=== PATIENT | female | born 1965 | race Caucasian/White ===

== ENCOUNTER 2017-04-17 19:16 | Emergency (ER) | payer BC ==
[2017-04-17 19:46] VITALS: BP 160/86; PULSE 82; TEMP 98.8; BMI 26.9
[2017-04-17 20:54] LABS: BASO % 0.9 % (0-2.0); EOS % 2.4 % (0-4.5); HEMATOCRIT 37.1 % (32.4-45.2); LYMPH % 34.6 % (8-40); MCH 27.5 pg (25.7-33.7); MCHC 32.2 g/dl (32.0-36.0); MEAN CELL VOLUME 85.1 fl (80-96); MEAN PLT VOLUME 7.6 fl (7.5-11.1); NEUT % 54.1 % (42.8-82.8); PLATELET COUNT 317 K/MM3 (134-434); RBC 4.36 M/mm3 (3.60-5.2); RDW 13.6 % (11.6-15.6); WHITE BLOOD COUNT 6.1 K/mm3 (4.0-10.0)
--- NOTE | 2017-04-17 21:01 | PDOC ---
History of Present Illness - General Chief Complaint: Shortness of Breath Stated Complaint: RESPIRATORY Time Seen by Provider: 04/17/17 19:48 - History of Present Illness Initial Comments: 04/17/17 20:45 51 yo F with no significant pmh who presents with SOB/. Pt. reports acute onset of SOB, sharp, pleuritic chest and back pain worse with deep inhalation, and non productive cough. + lightheadness. Denies N/V, F/C, jaw or neck pain, hemoptysis, wheezing, abdominal pain, diarrhea, constipation, urinary complaints , weakness, LOC, or sensory disturbance. No OTC symptom control. Denies tobacco use. Denies h/o CAD/CO. Denie chest trauma. Past History - Past Medical History Allergies/Adverse Reactions: Allergies Allergy/AdvReac Type Severity Reaction Status Date / Time No Known Allergies Allergy Verified 04/17/17 19:46 Home Medications: Ambulatory Orders Metformin HCl [Glucophage] 1,000 mg PO DAILY 04/17/17 COPD: No Diabetes: Yes - Suicide/Smoking/Psychosocial Hx Smoking History: Never smoked Have you smoked in the past 12 months: No Information on smoking cessation initiated: No Hx Alcohol Use: No Drug/Substance Use Hx: No Substance Use Type: None Review of Systems - Review of Systems Comments:: 04/17/17 20:46 GENERAL/CONSTITUTIONAL: No fever or chills. No weakness. HEAD, EYES, EARS, NOSE AND THROAT: No change in vision. No ear pain or discharge. No sore throat.- CARDIOVASCULAR: + chest pain and shortness of breath RESPIRATORY: + cough. No wheezing, or hemoptysis. GASTROINTESTINAL: No nausea, vomiting, diarrhea or constipation. GENITOURINARY: No dysuria, frequency, or change in urination. MUSCULOSKELETAL: No joint or muscle swelling or pain. No neck or back pain. SKIN: No rash NEUROLOGIC: No headache, vertigo, loss of consciousness, or change in strength/ sensation. ENDOCRINE: No increased thirst. No abnormal weight change HEMATOLOGIC/LYMPHATIC: No anemia, easy bleeding, or history of blood clots. ALLERGIC/IMMUNOLOGIC: No hives or skin allergy. *Physical Exam - Vital Signs Last Vital Signs Temp Pulse Resp BP Pulse Ox 98.8 F 82 18 160/86 100 04/17/17 19:42 04/17/17 19:42 04/17/17 19:42 04/17/17 19:42 04/17/17 19:42 - Physical Exam Comments: 04/17/17 20:46 GENERAL: Awake, alert, and fully oriented, in no acute distress HEAD: No signs of trauma, normocephalic, atraumatic EYES: PERRLA, EOMI, sclera anicteric, conjunctiva clear ENT: Hearing grossly normal, nares patent, oropharynx clear without exudates. Moist mucosa NECK: Normal ROM, supple, no lymphadenopathy, JVD, or masses LUNGS: No distress, speaks full sentences, clear to auscultation bilaterally HEART: Regular rate and rhythm, normal S1 and S2, no murmurs, rubs or gallops, peripheral pulses normal and equal bilaterally. EXTREMITIES : Normal inspection, Normal range of motion, no edema. No clubbing or cyanosis. SKIN: Warm, Dry, normal turgor, no rashes or lesions noted. ED Treatment Course - LABORATORY CBC & Chemistry Diagram: 04/17/17 20:11 04/17/17 20:11 Medical Decision Making - Medical Decision Making 04/17/17 21:05 51 yo F with h/o NIDDM and HTN who presents acute onset of SOB, sharp, peluritic chest and back pain worse with deep inhalation, and non productive cough. + lightheadness. Denies N/V, F/C, jaw or neck pain, hemoptysis, wheezing , abdominal pain, diarrhea, constipation, urinary complaints, weakness, LOC, or sensory disturbance. Denies tobacco use. Denies h/o CAD/CO. Physical exam unremarkable. BP 160/86. Will evaluate for possible causes of SOB including PNA vs. Influenza. R/o ACS/CO with atypical chest pain and risk factors. DDx: Viral URI, Influenza, PNA ED Course: CBC, CMP, Cardiac profile EKG, CXR Infuenza 04/17/17 21:32 Ibuprofen 600 mg. CXR: Unremarkable EK04/17/17 22:11 Trop: Neg CMP: Unremarkable Influenza Neg Patient stable and will discharge with return precautions. Advised to f/u with PMD. *DC/Admit/Observation/Transfer Diagnosis at time of Disposition: Shortness of breath Chest pain Qualifiers: Chest pain type: chest pain on breathing Qualified Code(s): R07.1 - Chest pain on breathing - Discharge Dispostion Disposition: HOME Condition at time of disposition: Stable Admit: No - Referrals - Patient Instructions Printed Discharge Instructions: DI for Atypical Chest Pain Additional Instructions: Please return to the emergency department with any new or worsening symptoms or concerns. Please follow up with your primary care physician within one week. - Post Discharge Activity - Attestations Physician Attestion: 04/17/17 22:11 I attest to the documentation provided in this note.
[2017-04-17 21:21] LABS: ALBUMIN 3.5 g/dl (3.4-5.0); ANION GAP 6 (8-16); BLOOD UREA NITROGEN 19 mg/dL (7-18); CALCIUM 8.1 mg/dL (8.5-10.1); CHLORIDE 105 mmol/L (98-107); CO2 25 mmol/L (21-32); CREATININE 0.7 mg/dL (0.55-1.02); GLUCOSE,RANDOM 259 mg/dL (74-106); INR 0.98 (0.82-1.09); POTASSIUM 4.2 mmol/L (3.5-5.1); PROTHROMBIN TIME (PATIENT) 11.1 SEC (9.98-11.88); SGOT/AST 8 U/L (15-37); SGPT/ALT 15 U/L (12-78); SODIUM 136 mmol/L (136-145)
[2017-04-17 21:25] LABS: ALK PHOS 176 U/L (45-117); BILIRUBIN,TOTAL 0.2 mg/dL (0.2-1.0); TOT PROT 6.9 g/dl (6.4-8.2)
--- NOTE | 2017-04-17 21:48 | PDOC ---
Attending Attestation - HPI HPI: 04/17/17 22:53 The patient is a 51 year old female with past medical history of diabetes and hypertension who presents to the ED with complaints of 1 week of shortness of breath. She additionally complains of a sharp, pleuritic pain that is worse with deep inspiration and her dry, non-productive cough. She endorses intermittent lightheadedness as well. She denies any fever or chills. Denies any hemoptysis, nausea, vomiting, or diarrhea. She denies any urinary symptoms. Documentation prepared by Deisy Frankel, acting as biomedical scientist for Tiki Soriano DO. - Physicial Exam PE: 04/17/17 22:54 GENERAL: Awake, alert, and fully oriented, in no acute distress HEAD: No signs of trauma EYES: PERRLA, EOMI, sclera anicteric, conjunctiva clear ENT: Auricles normal inspection, hearing grossly normal, nares patent, oropharynx clear without exudates. Moist mucosa NECK: Normal ROM, supple, no lymphadenopathy, JVD, or masses LUNGS: Deminished breath sounds at bilateral bases. No wheezes, and no crackles HEART: Regular rate and rhythm, normal S1 and S2, no murmurs, rubs or gallops ABDOMEN: Soft, nontender, normoactive bowel sounds. No guarding, no rebound. No masses EXTREMITIES: Normal range of motion, no edema. No clubbing or cyanosis. No cords, erythema, or tenderness NEUROLOGICAL: Cranial nerves II through XII grossly intact. Normal speech, normal gait SKIN: Warm, Dry, normal turgor, no rashes or lesions noted. <Deisy Frankel - Last Filed: 04/17/17 22:53> - Resident Resident Name: Talha Cannon - ED Attending Attestation I have performed the following: I have examined & evaluated the patient, The case was reviewed & discussed with the resident, I agree w/resident's findings & plan, Exceptions are as noted - Medical Decision Making 04/17/17 21:48 I, Dr. Tiki Soriano DO, attest that this document has been prepared under my direction and personally reviewed by me in its entirety. I further attest, that it accurately reflects all work, treatment, procedures and medical decision -making performed by me. 04/17/17 22:42 a/p: 51yo female with SOB - no cp -will check labs, ekg, flu, has had dry nonproductive cough -suspect viral uri with pleurisy -will give motrin and nebs -will monitor and reassess -suspect RAD from viral URI 04/18/17 00:54 pt feeling much better after the neb pending repeat trop 04/18/17 01:43 repeat trop negative stable for d/c to home <Tiki Soriano - Last Filed: 04/18/17 01:43> Discharge Disposition <MarlysDeisy - Last Filed: 04/17/17 22:53> - Discharge Dispostion Admit: No <Tiki Soriano - Last Filed: 04/18/17 01:43> - Diagnosis Shortness of breath Chest pain Qualifiers: Chest pain type: chest pain on breathing Qualified Code(s): R07.1 - Chest pain on breathing - Discharge Dispostion Disposition: HOME Condition at time of disposition: Stable - Prescriptions Prescriptions: Albuterol 0.083% Nebulizer Annemarie [Ventolin 0.083% Nebulizer Soln -] 1 neb NEB Q4H PRN #1 vial PRN Reason: Shortness Of Breath - Referrals Referrals: Gilbert Zavala MD [Staff Physician] - - Patient Instructions Printed Discharge Instructions: DI for Atypical Chest Pain Additional Instructions: Please return to the emergency department with any new or worsening symptoms or concerns. Please follow up with your primary care physician within one week. - Post Discharge Activity Heart Score/ECG Review - ECG Intrepretation Comment:: 04/17/17 22:44 sinus at 69, nl axis, nl interval, q waves anteriorly that are age indeterminate , no acute st/t wave findings <Tiki Soriano - Last Filed: 04/18/17 01:43>
[2017-04-17] MEDS ORDERED: ALBUTEROL SO4 2.5/IPRATROPIUM 0.5 INH SOL 3 ML VIAL.NEB. NEB ONE ×2 (22:32→22:37)
[2017-04-17] MEDS ORDERED: IBUPROFEN 600 MG TABLET (FP) PO ONE ×2 (22:32→22:36)
--- NOTE | 2017-04-18 10:04 | EKG ---
Test Reason : Blood Pressure : / mmHG Vent. Rate : 069 BPM Atrial Rate : 069 BPM P-R Int : 164 ms QRS Dur : 086 ms QT Int : 402 ms P-R-T Axes : 057 023 041 degrees QTc Int : 430 ms NORMAL SINUS RHYTHM LOW VOLTAGE QRS SEPTAL INFARCT , AGE UNDETERMINED ABNORMAL ECG NO PREVIOUS ECGS AVAILABLE Confirmed by TAL NGUYEN MD ([id number]) on 04/18/2017 10:04:42 AM Referred By: Confirmed By:TAL NGUYEN MD
== END 2017-04-18 01:24 | disposition home or self-care (01) ==
LOC: JER 19:16
PROC: 3E0F7GC Introduction of Other Therapeutic Substance into Respiratory Tract, Via Natural or Artificial Opening (ICD-10-PCS; principal; 2017-04-17)
DX: R07.1 Chest pain on breathing (principal)
CPT/HCPCS: 36415; 71046-TC; 80053; 82550; 84484; 85025; 85610; 87804; 93005; 93010; 99283-25

== ENCOUNTER 2017-06-16 07:49 | Day surgery (SDC) | payer BC ==
[2017-06-16 08:27] VITALS: BMI 24.5
[2017-06-16] MEDS ORDERED: PROPOFOL 20 ML ONE ×3 (08:41)
[2017-06-16 09:31] VITALS: TEMP 97.5
--- NOTE | 2017-06-16 09:31 | PROC ---
Endoscopy Procedure Endoscopy procedure completed. Please see scanned procedure report.
[2017-06-16 09:52] VITALS: PULSE 73
[2017-06-16 13:24] VITALS: BP 119/71
--- NOTE | 2017-06-17 11:54 | PATH ---
Surgical Pathology Report Patient Name: YESSICA LAY [facility]. Rec. #: [id number] /Age/Gender: 1965 (Age: 52) / F Account: [id number] Location: [facility]-ENDOSCOPY Taken: 06/16/2017 Received: 06/16/2017 Reported: 06/17/2017 Physicians: Efe Alanis M.D. Specimen(s) Received A: BX DUODENUM B: BX ANTRUM/BODY C: BX ASCENDING COLON D: BX DESCENDING COLON Clinical History Preoperative diagnosis: Abdominal pain, screening Postoperative diagnosis: Mild gastritis, abdominal pain Final Diagnosis A. DUODENUM, SECOND PORTION, BIOPSY: DUODENAL MUCOSA WITH NO PATHOLOGIC CHANGES. NO HISTOLOGIC EVIDENCE OF GLUTEN SENSITIVE ENTEROPATHY (CELIAC SPRUE) IDENTIFIED. B. STOMACH, ANTRUM AND BODY, BIOPSY: GASTRIC ANTRAL AND FUNDIC MUCOSA WITH FOCAL MILD REACTIVE GASTROPATHY. IMMUNOSTAIN FOR H. PYLORI IS NEGATIVE. C. COLON, ASCENDING, BIOPSY: COLONIC MUCOSA WITH PROMINENT SUBMUCOSAL LYMPHOID AGGREGATE. NO ACTIVE COLITIS, ARCHITECTURAL DISTORTION, GRANULOMATA, OR DYSPLASIA IDENTIFIED. NO MICROSCOPIC COLITIS IDENTIFIED (NO LYMPHOCYTIC OR COLLAGENOUS COLITIS IDENTIFIED). D. COLON, DESCENDING, BIOPSY: COLONIC MUCOSA WITH NO PATHOLOGIC CHANGES. NO ACTIVE COLITIS, ARCHITECTURAL DISTORTION, GRANULOMATA, OR DYSPLASIA IDENTIFIED. NO MICROSCOPIC COLITIS IDENTIFIED (NO LYMPHOCYTIC OR COLLAGENOUS COLITIS IDENTIFIED). Comment: The findings in Specimen C may indicate some form of antigenic stimulation to the GI tract. Electronically Signed Parker Romero M.D. Gross Description A. Received in formalin, labeled "biopsy second portion of duodenum" are 3 solis, irregular portions of soft tissue ranging from 0.2-0.4 cm. in greatest dimension. The specimens are submitted in toto in one cassette. B. Received in formalin, labeled "biopsy antrum/body" are 3 solis, irregular portions of soft tissue ranging from 0.2-0.4 cm. in greatest dimension. The specimens are submitted in toto in one cassette. C. Received in formalin, labeled "biopsy ascending colon" are 2 solis, irregular portions of soft tissue measuring 0.2 and 0.3 cm. in greatest dimension. The specimens are submitted in toto in one cassette. D. Received in formalin, labeled "biopsy descending colon" are 2 solis, irregular portions of soft tissue measuring 0.2 and 0.5 cm. in greatest dimension. The specimens are submitted in toto in one cassette. 06/16/201706/16/2017
== END 2017-06-16 10:20 | disposition home or self-care (01) ==
LOC: JASU-ENDO 07:49
PROVIDERS: ATTEND Internal Medicine Gastroenterology
PROC: 0DBM8ZX Excision of Descending Colon, Via Natural or Artificial Opening Endoscopic, Diagnostic (ICD-10-PCS; 2017-06-16)
PROC: 0DB98ZX Excision of Duodenum, Via Natural or Artificial Opening Endoscopic, Diagnostic (ICD-10-PCS; 2017-06-16)
PROC: 0DB68ZX Excision of Stomach, Via Natural or Artificial Opening Endoscopic, Diagnostic (ICD-10-PCS; 2017-06-16)
PROC: 0DBK8ZX Excision of Ascending Colon, Via Natural or Artificial Opening Endoscopic, Diagnostic (ICD-10-PCS; principal; 2017-06-16 08:30)
DX: Z12.11 Encounter for screening for malignant neoplasm of colon (principal); K29.70 Gastritis, unspecified, without bleeding
CPT/HCPCS: 84703; 88305-TC; 88342-TC

== ENCOUNTER 2020-04-03 08:11 | Inpatient (IN) | payer OTHER ==
[2020-04-03] MEDS ORDERED: DEXAMETHASONE SOD PHOSPHATE 4 MG/1 ML VIAL IVPUSH ONE ×2 (08:48→10:20)
[2020-04-03 08:50] VITALS: BMI 21.6
[2020-04-03 09:50] LABS: BASO % 0.1 % (0-2.0); HEMATOCRIT 35.9 % (32.4-45.2); HEMOGLOBIN 11.6 GM/dL (10.7-15.3); LYMPH % 8.5 % (8-40); MCH 27.9 pg (25.7-33.7); MCHC 32.2 g/dl (32.0-36.0); MEAN CELL VOLUME 86.6 fl (80-96); MEAN PLT VOLUME 7.8 fl (7.5-11.1); MONO % 3.5 % (3.8-10.2); NEUT % 87.9 % (42.8-82.8); PLATELET COUNT 333 K/MM3 (134-434); RBC 4.15 M/mm3 (3.60-5.2); RDW 14.5 % (11.6-15.6); WHITE BLOOD COUNT 8.3 K/mm3 (4.0-10.0)
[2020-04-03 09:52] LABS: CHLORIDE 104 mmol/L (98-107); POTASSIUM 3.9 mmol/L (3.5-5.1); SODIUM 138 mmol/L (136-145)
[2020-04-03 09:54] LABS: CALCIUM 8.2 mg/dL (8.5-10.1)
[2020-04-03 09:55] LABS: ANION GAP 4 MMOL/L (8-16); BLOOD UREA NITROGEN 6.4 mg/dL (7-18); CO2 30 mmol/L (21-32); GLUCOSE,RANDOM 312 mg/dL (74-106)
[2020-04-03 09:58] LABS: CREATININE 0.7 mg/dL (0.55-1.3); SGOT/AST 27 U/L (15-37); SGPT/ALT 33 U/L (13-61)
[2020-04-03 09:59] LABS: BILIRUBIN,TOTAL 0.2 mg/dL (0.2-1); TOT PROT 6.7 g/dl (6.4-8.2)
[2020-04-03 10:01] LABS: ALK PHOS 117 U/L (45-117)
[2020-04-03 10:02] LABS: LDH 353 U/L (84-246)
[2020-04-03] MEDS ORDERED: DEXAMETHASONE SOD PHOSPHATE 4 MG/1 ML VIAL ONE (10:29)
[2020-04-03 10:30] LABS: PROTHROMBIN TIME (PATIENT) 12.3 SEC (9.7-13.0)
[2020-04-03 10:33] LABS: ACTIVATED PTT 27.9 SECONDS (25.2-36.5)
[2020-04-03 11:20] LABS: EPI CELLS 30 /uL (0-25.1); HYALINE CASTS 0 /uL (0-3.1); URINE APPEARANCE Clear; URINE BACTERIA 375 /uL (0-1359); URINE BILIRUBIN Negative (NEGATIVE); URINE COLOR Yellow; URINE GLUCOSE (UA) >=1000 (NEGATIVE); URINE KETONE 80 (NEGATIVE); URINE LEUK ESTERASE Negative (NEGATIVE); URINE NITRITE Negative (NEGATIVE); URINE PROTEIN 30 (NEGATIVE); URINE RBC 4 /uL (0-23.9); URINE UROBILINOGEN 0.2 mg/dL (0.2-1.0); URINE WBC 5 /uL (0-25.8)
[2020-04-03] MEDS ORDERED: AZITHROMYCIN IVPB 500 MG in DEXTROSE 5%-WATER - 250 ML IVPB ONE (11:44)
[2020-04-03] MEDS: CEFTRIAXONE 1 GM in DEXTROSE 5%-WATER - 50 ML IVPB SCH (13:17)
[2020-04-03] MEDS: INSULIN SLIDING SCALE (NOVOLOG) 1 VIAL SQ SCH ×2 (17:02→23:15)
[2020-04-03] MEDS: ACETAMINOPHEN 325 MG TABLET (FP) PO PRN (18:19)
[2020-04-04] MEDS: INSULIN SLIDING SCALE (NOVOLOG) 1 VIAL SQ SCH ×4 (07:06→22:01)
[2020-04-04 09:10] LABS: HEMATOCRIT 35.9 % (32.4-45.2); HEMOGLOBIN 11.8 GM/dL (10.7-15.3); MCHC 32.8 g/dl (32.0-36.0); MEAN CELL VOLUME 85.5 fl (80-96); MEAN PLT VOLUME 7.7 fl (7.5-11.1); PLATELET COUNT 423 K/MM3 (134-434); RDW 14.4 % (11.6-15.6); WHITE BLOOD COUNT 7.5 K/mm3 (4.0-10.0)
[2020-04-04 09:34] LABS: CALCIUM 8.5 mg/dL (8.5-10.1)
[2020-04-04 09:35] LABS: BLOOD UREA NITROGEN 11.8 mg/dL (7-18)
[2020-04-04 09:36] LABS: MAGNESIUM 1.8 mg/dL (1.8-2.4)
[2020-04-04 09:38] LABS: CREATININE 0.6 mg/dL (0.55-1.3); PHOSPHOROUS 3.2 mg/dL (2.5-4.9)
[2020-04-04 09:39] LABS: BILIRUBIN,TOTAL 0.6 mg/dL (0.2-1); TOT PROT 6.8 g/dl (6.4-8.2)
[2020-04-04] MEDS ORDERED: PNEUMOC 13-VAL CONJ-DIP CRM/PF 0.5 ML DISP.SYRIN IM ONE (10:00)
[2020-04-04] MEDS ORDERED: AZITHROMYCIN IVPB 250 MG in DEXTROSE 5%-WATER - 250 ML IVPB SCH (10:00)
[2020-04-04] MEDS: ENOXAPARIN NA (PORCINE) 40 MG/0.4 ML DISP.SYRIN SQ SCH (10:39)
[2020-04-04] MEDS: PANTOPRAZOLE 40 MG TABLET PO SCH (10:39)
[2020-04-04] MEDS: DEXAMETHASONE SOD PHOSPHATE 4 MG/1 ML VIAL IVPUSH SCH (10:39)
[2020-04-04] MEDS: CEFTRIAXONE 1 GM in DEXTROSE 5%-WATER - 50 ML IVPB SCH (10:39)
[2020-04-04] MEDS ORDERED: ALBUTEROL SO4 0.083% IH SOL 2.5 MG/3 ML VIAL.NEB. NEB PRN (14:21)
[2020-04-04] MEDS: INSULIN (LEVEMIR) 100 UNITS/ML UNITS SQ SCH (18:06)
[2020-04-04] MEDS: ZINC SULFATE 220 MG CAPSULE (FP) PO SCH (21:50)
[2020-04-04] MEDS: ASCORBIC ACID 500 MG TABLET (FP) PO SCH (21:51)
[2020-04-05] MEDS: INSULIN (LEVEMIR) 100 UNITS/ML UNITS SQ SCH ×2 (06:22→22:12)
[2020-04-05] MEDS: INSULIN SLIDING SCALE (NOVOLOG) 1 VIAL SQ SCH ×4 (06:23→22:11)
[2020-04-05 07:55] LABS: BASO % 0.1 % (0-2.0); EOS % 0.1 % (0-4.5); HEMATOCRIT 36.9 % (32.4-45.2); LYMPH % 13.8 % (8-40); MCH 27.8 pg (25.7-33.7); MCHC 32.6 g/dl (32.0-36.0); MEAN CELL VOLUME 85.3 fl (80-96); MEAN PLT VOLUME 7.4 fl (7.5-11.1); MONO % 6.6 % (3.8-10.2); NEUT % 79.4 % (42.8-82.8); PLATELET COUNT 463 K/MM3 (134-434); RBC 4.32 M/mm3 (3.60-5.2); RDW 14.6 % (11.6-15.6); WHITE BLOOD COUNT 7.2 K/mm3 (4.0-10.0)
[2020-04-05 08:21] LABS: POTASSIUM 3.9 mmol/L (3.5-5.1)
[2020-04-05 08:23] LABS: CALCIUM 8.3 mg/dL (8.5-10.1)
[2020-04-05 08:24] LABS: ALBUMIN 2.8 g/dl (3.4-5.0); BLOOD UREA NITROGEN 17.1 mg/dL (7-18)
[2020-04-05 08:27] LABS: CREATININE 0.6 mg/dL (0.55-1.3)
[2020-04-05 08:28] LABS: BILIRUBIN,TOTAL 0.3 mg/dL (0.2-1); TOT PROT 6.6 g/dl (6.4-8.2)
[2020-04-05] MEDS: ENOXAPARIN NA (PORCINE) 40 MG/0.4 ML DISP.SYRIN SQ SCH (10:44)
[2020-04-05] MEDS: ZINC SULFATE 220 MG CAPSULE (FP) PO SCH ×2 (10:44→22:06)
[2020-04-05] MEDS: ASCORBIC ACID 500 MG TABLET (FP) PO SCH ×2 (10:44→22:06)
[2020-04-05] MEDS: PANTOPRAZOLE 40 MG TABLET PO SCH (10:44)
[2020-04-05] MEDS: CHOLECALCIFEROL (VIT D3) 1,000 UNIT (25 MCG) TABLET PO SCH (10:44)
[2020-04-05] MEDS: DEXAMETHASONE SOD PHOSPHATE 4 MG/1 ML VIAL IVPUSH SCH (10:44)
[2020-04-05] MEDS ORDERED: REMDESIVIR 200 MG in SODIUM CHLORIDE 210 ML IVPB ONE (12:00)
[2020-04-05] MEDS: INSULIN (NOVOLOG) ASPART 100 UNITS/ML 10ML VIAL SQ SCH (17:48)
[2020-04-05] MEDS: FAMOTIDINE 20 MG TABLET PO SCH (22:06)
[2020-04-06] MEDS: INSULIN SLIDING SCALE (NOVOLOG) 1 VIAL SQ SCH ×4 (06:05→22:31)
[2020-04-06] MEDS: INSULIN (LEVEMIR) 100 UNITS/ML UNITS SQ SCH ×2 (06:06→22:30)
[2020-04-06] MEDS: INSULIN (NOVOLOG) ASPART 100 UNITS/ML 10ML VIAL SQ SCH ×3 (08:55→18:00)
[2020-04-06] MEDS: DEXAMETHASONE SOD PHOSPHATE 4 MG/1 ML VIAL IVPUSH SCH (09:10)
[2020-04-06] MEDS: ASCORBIC ACID 500 MG TABLET (FP) PO SCH ×2 (09:11→22:31)
[2020-04-06] MEDS: CHOLECALCIFEROL (VIT D3) 1,000 UNIT (25 MCG) TABLET PO SCH (09:11)
[2020-04-06] MEDS: PANTOPRAZOLE 40 MG TABLET PO SCH (09:11)
[2020-04-06] MEDS: ZINC SULFATE 220 MG CAPSULE (FP) PO SCH ×2 (09:11→22:31)
[2020-04-06] MEDS: FAMOTIDINE 20 MG TABLET PO SCH ×2 (09:11→22:31)
[2020-04-06] MEDS: ENOXAPARIN NA (PORCINE) 40 MG/0.4 ML DISP.SYRIN SQ SCH (09:11)
[2020-04-06] MEDS: REMDESIVIR 100 MG in SODIUM CHLORIDE 230 ML IVPB SCH (12:36)
[2020-04-06] MEDS: ACETAMINOPHEN 325 MG TABLET (FP) PO PRN (15:25)
[2020-04-07] MEDS: INSULIN SLIDING SCALE (NOVOLOG) 1 VIAL SQ SCH ×4 (06:13→21:43)
[2020-04-07] MEDS: INSULIN (NOVOLOG) ASPART 100 UNITS/ML 10ML VIAL SQ SCH ×3 (06:13→18:24)
[2020-04-07] MEDS: INSULIN (LEVEMIR) 100 UNITS/ML UNITS SQ SCH ×2 (06:13→21:44)
[2020-04-07] MEDS: ENOXAPARIN NA (PORCINE) 40 MG/0.4 ML DISP.SYRIN SQ SCH (10:58)
[2020-04-07] MEDS: DEXAMETHASONE SOD PHOSPHATE 4 MG/1 ML VIAL IVPUSH SCH (10:58)
[2020-04-07] MEDS: ZINC SULFATE 220 MG CAPSULE (FP) PO SCH ×2 (11:00→21:43)
[2020-04-07] MEDS: CHOLECALCIFEROL (VIT D3) 1,000 UNIT (25 MCG) TABLET PO SCH (11:00)
[2020-04-07] MEDS: ASCORBIC ACID 500 MG TABLET (FP) PO SCH ×2 (11:00→21:43)
[2020-04-07] MEDS: FAMOTIDINE 20 MG TABLET PO SCH ×2 (11:01→21:43)
[2020-04-07] MEDS: PANTOPRAZOLE 40 MG TABLET PO SCH (11:01)
[2020-04-07] MEDS: REMDESIVIR 100 MG in SODIUM CHLORIDE 230 ML IVPB SCH (12:45)
[2020-04-07 13:03] LABS: BASO % 0.1 % (0-2.0); EOS % 0.6 % (0-4.5); HEMATOCRIT 35.8 % (32.4-45.2); HEMOGLOBIN 11.6 GM/dL (10.7-15.3); LYMPH % 8.3 % (8-40); MCH 27.7 pg (25.7-33.7); MCHC 32.6 g/dl (32.0-36.0); MEAN CELL VOLUME 85.1 fl (80-96); MEAN PLT VOLUME 7.1 fl (7.5-11.1); MONO % 4.8 % (3.8-10.2); NEUT % 86.2 % (42.8-82.8); PLATELET COUNT 503 K/MM3 (134-434); RDW 14.3 % (11.6-15.6); WHITE BLOOD COUNT 9.8 K/mm3 (4.0-10.0)
[2020-04-07 13:27] LABS: POTASSIUM 3.3 mmol/L (3.5-5.1)
[2020-04-07 13:29] LABS: CALCIUM 8.4 mg/dL (8.5-10.1)
[2020-04-07 13:30] LABS: ALBUMIN 2.4 g/dl (3.4-5.0); BLOOD UREA NITROGEN 20.2 mg/dL (7-18); MAGNESIUM 1.8 mg/dL (1.8-2.4)
[2020-04-07 13:33] LABS: CREATININE 0.5 mg/dL (0.55-1.3); PHOSPHOROUS 3.5 mg/dL (2.5-4.9)
[2020-04-07 13:34] LABS: BILIRUBIN,TOTAL 0.3 mg/dL (0.2-1); TOT PROT 5.8 g/dl (6.4-8.2)
[2020-04-07 14:11] LABS: ERYTHROCYTE SEDIMENTATION RATE 75 mm/hr (0-30)
[2020-04-08] MEDS: INSULIN (LEVEMIR) 100 UNITS/ML UNITS SQ SCH (06:27)
[2020-04-08] MEDS: INSULIN SLIDING SCALE (NOVOLOG) 1 VIAL SQ SCH ×2 (06:28→12:24)
[2020-04-08] MEDS: INSULIN (NOVOLOG) ASPART 100 UNITS/ML 10ML VIAL SQ SCH ×2 (06:28→12:23)
[2020-04-08 08:44] LABS: BASO % 0.2 % (0-2.0); EOS % 0.9 % (0-4.5); HEMATOCRIT 33.8 % (32.4-45.2); HEMOGLOBIN 10.9 GM/dL (10.7-15.3); LYMPH % 15.7 % (8-40); MCH 27.7 pg (25.7-33.7); MCHC 32.3 g/dl (32.0-36.0); MEAN CELL VOLUME 85.7 fl (80-96); MEAN PLT VOLUME 7.1 fl (7.5-11.1); MONO % 8.6 % (3.8-10.2); NEUT % 74.6 % (42.8-82.8); PLATELET COUNT 508 K/MM3 (134-434); RBC 3.94 M/mm3 (3.60-5.2); RDW 14.5 % (11.6-15.6); WHITE BLOOD COUNT 7.7 K/mm3 (4.0-10.0)
[2020-04-08] MEDS: ASCORBIC ACID 500 MG TABLET (FP) PO SCH (09:18)
[2020-04-08] MEDS: ZINC SULFATE 220 MG CAPSULE (FP) PO SCH (09:18)
[2020-04-08] MEDS: ENOXAPARIN NA (PORCINE) 40 MG/0.4 ML DISP.SYRIN SQ SCH (09:19)
[2020-04-08] MEDS: CHOLECALCIFEROL (VIT D3) 1,000 UNIT (25 MCG) TABLET PO SCH (09:19)
[2020-04-08] MEDS: FAMOTIDINE 20 MG TABLET PO SCH (09:19)
[2020-04-08] MEDS: PANTOPRAZOLE 40 MG TABLET PO SCH (09:19)
[2020-04-08 09:42] LABS: POTASSIUM 3.6 mmol/L (3.5-5.1)
[2020-04-08] MEDS ORDERED: DEXAMETHASONE 4 MG TABLET (FP) PO SCH (10:00)
[2020-04-08 10:15] LABS: ALBUMIN 2.4 g/dl (3.4-5.0); BLOOD UREA NITROGEN 18.4 mg/dL (7-18); CALCIUM 8.3 mg/dL (8.5-10.1); MAGNESIUM 1.8 mg/dL (1.8-2.4)
[2020-04-08 10:18] LABS: BILIRUBIN,TOTAL 0.2 mg/dL (0.2-1); CREATININE 0.5 mg/dL (0.55-1.3); PHOSPHOROUS 3.8 mg/dL (2.5-4.9)
[2020-04-08 10:19] LABS: TOT PROT 5.8 g/dl (6.4-8.2)
[2020-04-08 11:25] LABS: ERYTHROCYTE SEDIMENTATION RATE 60 mm/hr (0-30)
[2020-04-08] MEDS: REMDESIVIR 100 MG in SODIUM CHLORIDE 230 ML IVPB SCH (12:24)
[2020-04-08 14:52] VITALS: BP 117/69; PULSE 81; TEMP 98.5
== END 2020-04-08 15:55 | disposition home or self-care (01) | DRG 137 ==
LOC: JER 08:11 → JERBED 08:47 → J5WEST-2 12:26
PROVIDERS: ADMIT Internal Medicine; ATTEND Internal Medicine
PROC: XW033E5 Introduction of Remdesivir Anti-infective into Peripheral Vein, Percutaneous Approach, New Technology Group 5 (ICD-10-PCS; principal; 2020-04-06)
PROC: XW13325 Transfusion of Convalescent Plasma (Nonautologous) into Peripheral Vein, Percutaneous Approach, New Technology Group 5 (ICD-10-PCS; 2020-04-06)
DX: U07.1 COVID-19 (principal); J12.82 Pneumonia due to coronavirus disease 2019; J96.01 Acute respiratory failure with hypoxia; I10 Essential (primary) hypertension; E11.65 Type 2 diabetes mellitus with hyperglycemia
CPT/HCPCS: 36415; 36430; 71045-TC-FY; 80053; 81003; 82728; 82962; 83036; 83615; 83735; 84100; 84484; 85025; 85027; 85379; 85610; 85651; 85730; 86140; 86850; 86900; 86901; 87040; 87086; 87426; 87804; 93005; 93010; 94761; 99285-25; C9399; P9017

== ENCOUNTER 2023-05-23 07:12 | Day surgery (SDC) | payer OTHER ==
[2023-05-16 13:51] VITALS: BMI 22.2
[2023-05-23] MEDS ORDERED: PROPOFOL 40 ML ONE (08:44)
[2023-05-23] MEDS ORDERED: MIDAZOLAM HCL 2 MG/2 ML SINGLE DOSE VIAL ONE (08:44)
[2023-05-23] MEDS ORDERED: BUPIVACAINE HCL/EPINEPHRINE/PF 30 ML VIAL IJ ONE (10:26)
[2023-05-23] MEDS ORDERED: DEXAMETHASONE SOD PHOSPHATE/PF 10 MG/ML SDV ONE (10:39)
[2023-05-23] MEDS ORDERED: ROPIVACAINE HCL 0.5% 30ML VIAL ONE (10:40)
[2023-05-23] MEDS ORDERED: methylPREDNISolone ACET (DEPO) 40 MG/1 ML VIAL ONE (11:20)
[2023-05-23] MEDS ORDERED: LIDOCAINE HCL 1%, 10 MG/ML (20ML VIAL) ONE (11:20)
[2023-05-23] MEDS ORDERED: methylPREDNISolone NA SUCC 40 MG/1 ML VIAL ONE (11:20)
[2023-05-23] MEDS ORDERED: ONDANSETRON 4 MG/2 ML VIAL IVPUSH PRN (12:26)
[2023-05-23] MEDS ORDERED: LACTATED RINGERS SOLUTION 1,000 ML IV SCH (12:30)
[2023-05-23] MEDS: ACETAMINOPHEN 1000 MG/100 ML BAG IVPB ONE (12:37)
[2023-05-23 14:23] VITALS: BP 110/61; PULSE 75; RESP 18; TEMP 97.7
== END 2023-05-23 14:20 | disposition home or self-care (01) ==
LOC: FASU 07:12
PROVIDERS: ATTEND Orthopaedic Surgery
PROC: 0RNK4ZZ Release Left Shoulder Joint, Percutaneous Endoscopic Approach (ICD-10-PCS; principal; 2023-05-23 11:19)
DX: M75.22 Bicipital tendinitis, left shoulder (principal); M75.52 Bursitis of left shoulder; M75.02 Adhesive capsulitis of left shoulder; S46.012D Strain of muscle(s) and tendon(s) of the rotator cuff of left shoulder, subsequent encounter; S43.432D Superior glenoid labrum lesion of left shoulder, subsequent encounter; X58.XXXD Exposure to other specified factors, subsequent encounter; Y92.9 Unspecified place or not applicable; Y93.9 Activity, unspecified
CPT/HCPCS: 29823; 29826; 29828; C1713; 36415; 82010; 88304-TC; 94760; J0131

== ENCOUNTER 2023-10-15 09:34 | Emergency (ER) | payer OTHER ==
[2023-10-15 09:46] VITALS: RESP 20; BMI 23.6
[2023-10-15 10:55] LABS: URINE APPEARANCE CLEAR; URINE BILIRUBIN NEGATIVE (NEGATIVE); URINE COLOR YELLOW; URINE GLUCOSE (UA) 3+ (NEGATIVE); URINE KETONE 2+ (NEGATIVE); URINE LEUK ESTERASE NEGATIVE (NEGATIVE); URINE NITRITE NEGATIVE (NEGATIVE); URINE PROTEIN NEGATIVE (NEGATIVE); URINE UROBILINOGEN 0.2 mg/dL (0.2-1.0)
[2023-10-15 10:58] LABS: HCG,QUALITATIVE URINE Negative
[2023-10-15] MEDS: SODIUM CHLORIDE 1,000 ML IV STA (11:00)
[2023-10-15 11:15] LABS: BASO % 0.9 % (0-2.0); EOS % 0.7 % (0-4.5); HEMATOCRIT 37.1 % (32.4-45.2); HEMOGLOBIN 11.7 GM/dL (10.7-15.3); LYMPH % 17.3 % (8-40); MCH 26.4 pg (25.7-33.7); MCHC 31.7 g/dl (32.0-36.0); MEAN CELL VOLUME 83.4 fl (80-96); MEAN PLT VOLUME 6.8 fl (7.5-11.1); MONO % 3.6 % (3.8-10.2); NEUT % 77.5 % (42.8-82.8); PLATELET COUNT 385 10^3/uL (134-434); RBC 4.45 M/mm3 (3.60-5.2); RDW 15.3 % (11.6-15.6); WHITE BLOOD COUNT 7.9 K/mm3 (4.0-10.0)
[2023-10-15 11:37] LABS: BLOOD UREA NITROGEN 24.5 mg/dL (7-18)
[2023-10-15 11:38] LABS: ALBUMIN 3.8 g/dl (3.4-5.0); CALCIUM 8.6 mg/dL (8.5-10.1)
[2023-10-15 11:40] LABS: CREATININE 0.7 mg/dL (0.55-1.3)
[2023-10-15 11:42] LABS: BILIRUBIN,TOTAL 0.4 mg/dL (0.2-1); TOT PROT 7.6 g/dl (6.4-8.2)
[2023-10-15 12:31] VITALS: BP 124/80; PULSE 75; TEMP 97.7
== END 2023-10-15 13:13 | disposition home or self-care (01) ==
LOC: JER 09:34
PROC: 3E0337Z Introduction of Electrolytic and Water Balance Substance into Peripheral Vein, Percutaneous Approach (ICD-10-PCS; principal; 2023-10-15)
DX: R06.02 Shortness of breath (principal); R10.9 Unspecified abdominal pain; Z20.822 Contact with and (suspected) exposure to COVID-19
CPT/HCPCS: 0241U-QW; 36415; 71046-TC-FY; 80053; 81003; 84484; 84703; 85025; 87086; 93005; 93010; 99285-25

== ENCOUNTER 2024-07-18 09:36 | Emergency (ER) | payer OTHER ==
[2024-07-18 09:49] VITALS: BP 132/72; PULSE 79; RESP 18; TEMP 98.2; BMI 23.0
== END 2024-07-18 11:47 | disposition home or self-care (01) ==
LOC: JERFT 09:36
DX: J30.2 Other seasonal allergic rhinitis (principal); R09.82 Postnasal drip; J02.9 Acute pharyngitis, unspecified; R05.9 Cough, unspecified
CPT/HCPCS: 0241U-QW; 99283-25